=== PATIENT | male | born 1990 | race Caucasian/White ===

== ENCOUNTER 2020-10-21 07:37 | Day surgery (SDCO) | payer OTHER ==
[~2020-10-21] VITALS: Ht 183 cm; Wt 107.0 kg
[~2020-10-21 07:37] MED LIST: BACTRIM DS TAB1 EACH PO; IBUPROFEN800 MG PO; KEFLEX250 MG PO; KEFLEX500 MG PO
[2020-10-21 09:33] LABS: BASOPHIL 0.8 % (0-2); HCT 42.1 % (42.0-52.0); HGB 14.4 g/dl (13.2-18.0); LYMPHOCYTE 18.7 % (15-48); MCH 31.9 pg (25.0-31.0); MCHC 34.2 g/dL (32.0-36.0); MCV 93.1 fL (78.0-100.0); MONOCYTE 9.4 % (0-12); MPV 9.6 fL (6.0-9.5); NEUTROPHIL 64.5 % (41-80); NRBC 0; PLT 216 K/uL (150-400); RBC 4.52 M/uL (4.70-6.00); RDW 12.3 % (11.5-14.0); WBC 8.8 K/uL (4.0-10.5)
[2020-10-21 09:42] LABS: ALBUMIN 3.8 g/dL (3.4-5.0); BILIRUBIN - TOTAL 0.4 mg/dL (0.2-1.0); CREATININE 0.8 mg/dL (0.67-1.17); GLOBULIN (CALCULATION) 3.1 g/dL; POTASSIUM 3.9 mmol/L (3.5-5.1); TOTAL PROTEIN 6.9 g/dL (6.4-8.2)
[2020-10-21 10:20] LABS: BILIRUBIN NEGATIVE (NEGATIVE); BLOOD NEGATIVE Ery/uL (NEGATIVE); CLARITY CLEAR (CLEAR); COLOR YELLOW (YELLOW); GLUCOSE (U) NORMAL (NORMAL); LEUKOCYTES NEGATIVE Leu/uL (NEGATIVE); NITRITE NEGATIVE (NEGATIVE); PROTEIN NEGATIVE (NEGATIVE); UROBILINOGEN 0.2 mg/dL (0.2-1.0); pH 6.5 (5.0-9.0)
[2020-10-21] MEDS ORDERED: ZYRTEC10 MG PO (13:19)
[2020-10-21] MEDS ORDERED: FLONASE ALLER15.8 ML (13:19)
[2020-10-21] MEDS ORDERED: VITAMIN D250 MC1 PO (13:20)
[2020-10-21] MEDS ORDERED: ALEVE220 MG PO (13:21)
[2020-10-21] MEDS ORDERED: TRIAMCINOLONE 015 GM TOP (13:22)
[2020-10-22 03:56] LABS: BASOPHIL 0.2 % (0-2); EOSINOPHIL 0.2 % (0-5); HCT 40.8 % (42.0-52.0); HGB 14.1 g/dl (13.2-18.0); LYMPHOCYTE 6.3 % (15-48); MCHC 34.6 g/dL (32.0-36.0); MCV 92.7 fL (78.0-100.0); MONOCYTE 2.9 % (0-12); MPV 9.7 fL (6.0-9.5); NEUTROPHIL 89.9 % (41-80); NRBC 0; PLT 245 K/uL (150-400)
[2020-10-22 04:10] LABS: CREATININE 0.92 mg/dL (0.67-1.17); POTASSIUM 4.4 mmol/L (3.5-5.1)
[2020-10-22] MEDS ORDERED: NORCO 5-325 TA1 EACH PO (10:42)
[2020-10-22] MEDS ORDERED: OXY-IR 5MG5 MG PO (10:56)
[2020-10-22] MEDS ORDERED: ACETAMINOPHEN500 M1 PO (10:56)
[2020-10-22] MEDS ORDERED: COLACE100 MG PO (10:56)
== END 2020-10-22 11:12 | disposition home or self-care (01) ==
LOC: FER 07:37 → FMS 12:05
PROVIDERS: Emergency Medicine; ADMIT Internal Medicine
DX: K35.30 Acute appendicitis with localized peritonitis, without perforation or gangrene (principal); E78.00 Pure hypercholesterolemia, unspecified; E55.9 Vitamin D deficiency, unspecified; J30.2 Other seasonal allergic rhinitis; F17.290 Nicotine dependence, other tobacco product, uncomplicated; Z79.899 Other long term (current) drug therapy; Z20.822 Contact with and (suspected) exposure to COVID-19
CPT/HCPCS: 36415; 80048; 80053; 81003; 85025; 87040; 94010; C9113; G0378; J1100; J1644; J1885; J2250; J2270; J2405; J2543; J2704; J2710; J3010; J7030; J7120; Q9967; U0002